=== PATIENT | male | born 1975 | race Caucasian/White ===

== ENCOUNTER 2022-03-25 19:49 | Emergency (ER) | payer OTHER ==
[2022-03-25] MEDS ORDERED: HYDROmorphone 1 MG/ML 1 ML SYRINGE IVP STA ×2 (19:57→20:30)
[2022-03-25] MEDS ORDERED: SODIUM CHLORIDE 0.9% 1,000 ML IV STA (19:57)
[2022-03-25] MEDS ORDERED: SODIUM CHLORIDE 0.9% 500 ML 500 ML IV STA (19:57)
[2022-03-25 20:00] VITALS: TEMP 97.9
[2022-03-25 20:18] LABS: Basophils # (A) 0.2 k/uL (0-0.2); Basophils % (A) 2 %; Eosinophils # (A) 0.2 k/uL (0-0.7); Eosinophils % (A) 2 %; HCT 47.6 % (39.0-53.0); HGB 16.3 gm/dL (13.0-17.5); Lymphocytes # (A) 2.4 k/uL (1.0-4.8); Lymphocytes % (A) 23 %; MCH 33.3 pg (25.0-35.0); MCHC 34.1 g/dL (31.0-37.0); MCV 97.7 fL (80.0-100.0); Mean Platelet Volume 7.9; Monocytes # (A) 0.6 k/uL (0-1.0); Monocytes % (A) 6 %; Neutrophils # (A) 6.8 k/uL (1.3-7.7); Neutrophils % (A) 65 %; Platelet Count 219 k/uL (150-450); RBC 4.87 m/uL (4.30-5.90); RDW 12.3 % (11.5-15.5); WBC 10.3 k/uL (3.8-10.6)
[2022-03-25 20:26] LABS: Partial Thromboplastin Time 22.5 sec (22.0-30.0)
[2022-03-25 20:28] LABS: ALT 30 U/L (4-49); AST 37 U/L (17-59); African American GFR (CKD) >90 (>60 ml/min/1.73 sqM); Albumin 5.1 g/dL (3.5-5.0); Alkaline Phosphatase 78 U/L (38-126); Anion Gap 18 mmol/L; Blood Urea Nitrogen 16 mg/dL (9-20); Calcium 8.8 mg/dL (8.4-10.2); Carbon Dioxide 21 mmol/L (22-30); Chloride 101 mmol/L (98-107); Glucose 122 mg/dL (74-99); Non-African American GFR(CKD) >90 (>60 ml/min/1.73 sqM); Potassium 3.5 mmol/L (3.5-5.1); Sodium 140 mmol/L (137-145); Total Bilirubin 0.8 mg/dL (0.2-1.3); Total Protein 7.2 g/dL (6.3-8.2)
[2022-03-25] MEDS ORDERED: ETOMIDATE 2 MG/ML 10 ML VIAL IVP STA (20:30)
--- NOTE | 2022-03-25 20:38 | XR ---
EXAMINATION TYPE: XR tibia fibula RT, XR foot limited RT, XR ankle limited RT DATE OF EXAM: 03/25/2022 8:19 PM INDICATION: Patient age:Male; 46 years old; Reason for study: fracture; COMPARISON: None TECHNIQUE: The right tibia/fibula was examined in AP and lateral projections. Right foot and ankle were examined in frontal, lateral FINDINGS: Comminuted fractures of both distal fibula diaphysis and tibia diaphysis. Fractures are com pletely displaced with shortening there is approximately 2.6 cm displacement of the tibia anteriorly and posterior medial displacement of approximately 3.4 cm of the fibula. The ankle is rotated 90 degr ees externally. The ankle is rotated 90 degrees externally. No additional fractures involving the ankle. No evidence of intra-articular extension. Osseous structures of the foot are intact. IMPRESSION: Comminuted fracture of the right distal tibia and fibula diaphysis with complete displacement with sh ortening and 90 degree of external rotation.
[2022-03-25 21:22] VITALS: RESP 18
--- NOTE | 2022-03-25 21:27 | ED ---
Lower Extremity Injury HPI - General Chief Complaint: Extremity Injury, Lower Stated Complaint: RT foot open fracture Time Seen by Provider: 03/25/22 19:54 Source: patient Mode of arrival: EMS Limitations: no limitations - History of Present Illness Initial Comments: This 46-year-old male presents with a complaint of right leg injury. He presents via EMS. While at work, 3000 pounds worth of copper wiring fell on his anterior aspect of the right leg. This occurred just shortly prior to arrival. He does complain of severe pain. He received 15 mg of morphine prior to arrival states that the pain is still severe. He denies any other injuries. No other complaints or modifying factors. - Related Data Allergies Allergy/AdvReac Type Severity Reaction Status Date / Time codeine Allergy Unknown Verified 03/25/22 20:32 erythromycin base Allergy Unknown Verified 03/25/22 20:32 Latex, Natural Rubber Allergy Unknown Verified 03/25/22 20:32 methocarbamol [From Robaxin] Allergy Unknown Verified 03/25/22 20:32 penicillamine Allergy Unknown Verified 03/25/22 20:32 Review of Systems ROS Statement: Those systems with pertinent positive or pertinent negative responses have been documented in the HPI. ROS Other: All systems not noted in ROS Statement are negative. General Exam - General Exam Comments Initial Comments: GENERAL: The patient is well nourished and well hydrated. VITAL SIGNS: Heart rate, blood pressure, respiratory rate reviewed as recorded in nurse's notes. EYES: Pupils are round and reactive. Extraocular movements are intact. No con junctival / lid redness or swelling. ENT: No external evidence of injury, swelling, or ecchymosis. Airway is patent. Throat is clear. NECK: Nontender. No swelling or evidence of injury. No subcutaneous emphysema. Trachea is midline. No thyroid mass. HEART: Regular rate and rhythm. Good peripheral pulses. LUNGS/CHEST: Breath sounds clear and equal bilaterally. No rales, rhonchi, or wheezes. No ecchymosis, subcutaneous emphysema, or tenderness. ABDOMEN: Abdomen soft without tenderness. No palpable masses or organomegaly. No peritoneal signs. No abdominal wall swelling or ecchymosis. EXTREMITIES: Obvious deformity noted to the right distal leg with angulation laterally. Significant tenderness noted. Only minimal swelling currently noted. No thoracolumbar tenderness. VASCULAR: Excellent capillary refill is noted bilateral feet. There also is good dorsalis pedis pulse noted via hand-held Doppler. NEUROLOGIC: Sensation is grossly intact. Cranial nerve exam reveals face is symmetrical, tongue is midline, speech is clear. SKIN: No ecchymosis is noted. No induration or masses noted. There is a scant abrasion noted over the anterior surface of the right distal leg. PSYCHIATRIC: Alert and oriented. Appropriate behavior and judgment. Limitations: no limitations Course Vital Signs 03/25/22 03/25/22 03/25/22 19:53 21:05 21:08 Temperature 97.9 F Pulse Rate 84 90 90 Respiratory 16 18 16 Rate Blood Pressure 126/90 92/69 108/77 O2 Sat by Pulse 98 95 99 Oximetry 03/25/22 21:13 Temperature Pulse Rate 96 Respiratory 20 Rate Blood Pressure 103/75 O2 Sat by Pulse 100 Oximetry Procedures - [place] Protocol (Time Out) Procedure Performed:: reduction R ankle fracture Patient Identification (2 identifiers required): Chart Site: R ankle Site Verified With Patient/Guardian: Yes Final Confirmation: Procedure, Site, Patient Position, Special Equipment, Confirmed w/Provider Medical Decision Making - Medical Decision Making The patient was seen and examined. The patient did receive 50 mg of morphine prior to arrival. He receives 2 mg of Dilaudid intravenously with some moderate relief. An x-ray was done of the right foot, right ankle, and right tibia and fibula and this does show a obvious significant fracture of the distal right tibia and fibula. There is some shortening and angulation noted. There is some comminution of the fibula. Laboratories reviewed and the CO2 is slightly decreased. The patient elects to obtain procedural sedation for reduction of the fracture. Verbal and written consent are obtained. Timeout was done prior to reduction. He receives 12 mg of etomidate and has significant sedation. The fracture is reduced. It is splinted with a posterior 4 inch Ortho-Glass splint with padding. It also is splinted with a sugar tong 5 inch Ortho-Glass splint medially and laterally. Excellent pedal pulses are noted after splint placement. Good capillary refill also is noted. No complications were encountered. Patient tolerated the sedation well. No complications with procedural sedation noted. The procedural sedation went from approximately 21:12 to 21:20. The case is discussed with Dr. Echevarria, our orthopedic surgeon, and he feels though patient would benefit from transfer to Center with orthopedic trauma. Patient is agreeable to transfer to [facility]. Case is discussed with orthopedic trauma surgeon Dr. Crowell who is agreeable with transfer. Case also was discussed with Dr. Coulter from trauma surgery who also accepts the case. Patient will be transferred via EMS in the near future. Postreduction x-rays are ordered. Appropriate transfer paperwork is completed. - Lab Data Result diagrams: 03/25/22 20:04 03/25/22 20:04 Lab Results 03/25/22 03/25/22 03/25/22 Range/Units 20:04 20:04 20:04 WBC 10.3 (3.8-10.6) k/uL RBC 4.87 (4.30-5.90) m/uL Hgb 16.3 (13.0-17.5) gm/dL Hct 47.6 (39.0-53.0) % MCV 97.7 (80.0-100.0) fL MCH 33.3 (25.0-35.0) pg MCHC 34.1 (31.0-37.0) g/dL RDW 12.3 (11.5-15.5) % Plt Count 219 (150-450) k/uL MPV 7.9 Neutrophils % 65 % Lymphocytes % 23 % Monocytes % 6 % Eosinophils % 2 % Basophils % 2 % Neutrophils # 6.8 (1.3-7.7) k/uL Lymphocytes # 2.4 (1.0-4.8) k/uL Monocytes # 0.6 (0-1.0) k/uL Eosinophils # 0.2 (0-0.7) k/uL Basophils # 0.2 (0-0.2) k/uL PT 11.0 (9.0-12.0) sec INR 1.0 (<1.2) APTT 22.5 (22.0-30.0) sec Sodium 140 (137-145) mmol/L Potassium 3.5 (3.5-5.1) mmol/L Chloride 101 (98-107) mmol/L Carbon Dioxide 21 L (22-30) mmol/L Anion Gap 18 mmol/L BUN 16 (9-20) mg/dL Creatinine 0.98 (0.66-1.25) mg/dL Est GFR (CKD-EPI)AfAm >90 (>60 ml/min/1.73 sqM) Est GFR (CKD-EPI)NonAf >90 (>60 ml/min/1.73 sqM) Glucose 122 H (74-99) mg/dL Calcium 8.8 (8.4-10.2) mg/dL Total Bilirubin 0.8 (0.2-1.3) mg/dL AST 37 (17-59) U/L ALT 30 (4-49) U/L Alkaline Phosphatase 78 (38-126) U/L Total Protein 7.2 (6.3-8.2) g/dL Albumin 5.1 H (3.5-5.0) g/dL Disposition Clinical Impression: Fracture of tibia with fibula, closed Disposition: OTHER INSTITUTION NOT DEFINED Condition: Fair Is patient prescribed a controlled substance at d/c from ED?: No Time of Disposition: 21:26 - Out of Hospital Transfer - Req. Specs Out of Hospital Transfer - Requested Specifics: Other Emergency Center ([facility])
[2022-03-25 21:37] VITALS: BP 93/71; PULSE 90
--- NOTE | 2022-03-25 21:48 | XR ---
EXAMINATION TYPE: XR tibia fibula RT DATE OF EXAM: 03/25/2022 9:34 PM INDICATION: Patient age:Male; 46 years old; Reason for study: Post reduction; COMPARISON: Same day radiographs TECHNIQUE: The right tibia/fibula was examined in AP and lateral projections. FINDINGS: Interval reduction with of splint placement of prior comminuted fractures with persistent d isplacement and angulation of the right tibia and fibula diaphysis fractures. External rotation has b een reduced. IMPRESSION: Interval splint placement with persistent displacement and angulation of the comminuted fractures of the right tibia and fibula. Reduction of prior 90 degrees external rotation.
== END 2022-03-25 21:56 | disposition other institution (70) ==
LOC: EC 19:49
DX: S82.201A Unspecified fracture of shaft of right tibia, initial encounter for closed fracture (principal); Z88.5 Allergy status to narcotic agent; Z88.1 Allergy status to other antibiotic agents; Z91.040 Latex allergy status; Z88.0 Allergy status to penicillin; W20.8XXA Other cause of strike by thrown, projected or falling object, initial encounter
CPT/HCPCS: 36415; 93005; 80053; 85025; 85610; 85730; 73590; 73600; 73620; 99285; 96374; 96375 ×2; 96361; 27762; J1170